=== PATIENT | female | born 1985 | race American Indian/Alaskan Native ===

== ENCOUNTER 2018-02-28 17:54 | Day surgery (SDC) | payer SELFPAY ==
[2018-02-28 17:57] VITALS: BP 138/88; PULSE 97; RESP 20; TEMP 36.8; O2SAT 100
--- NOTE | 2018-02-28 18:31 | DI.US.S_ITS ---
PROCEDURE: US RENAL COMPLETE INDICATIONS: FLANK PAIN; HISTORY STONES TECHNIQUE: Real-time scanning was performed of the kidneys and bladder, with image documentation. COMPARISON: [facility], US, US OB < 14 WEEKS + OB TRANSVAG, 10/09/2017, 12:02. [facility], US, US OB < 14 WEEKS + OB TRANSVAG, 04/15/2017, 15:27. [facility], US, US OB < 14 WEEKS + OB TRANSVAG, 04/02/2017, 9:25. [facility], US, US OB<14 WKS, 01/07/2017, 13:37. FINDINGS: Kidneys: Kidneys are normal in size. Right kidney measures 10.5 cm long; left kidney measures 13.4 cm long. Right renal cortical thickness is 1.6 cm; left renal cortical thickness is 1.8 cm. Renal cortical echotexture is normal. No hydronephrosis or nephrolithiasis. No suspicious solid mass lesions. Bladder: Could not be evaluated on this exam due to inadequate distention IMPRESSION: No hydronephrosis or nephrolithiasis identified. The bladder could not be evaluated on this exam. Dictated by: Sandeep Silva M.D. on 02/28/2018 at 19:37 Approved by: Sandeep Silva M.D. on 02/28/2018 at 19:39
--- NOTE | 2018-02-28 18:51 | ED_ITS ---
HPI - <EFRAIN Hagen - Last Filed: 02/28/18 23:12> General Chief complaint: Urogenital-Female Stated complaint: 6 WKS PREG, CRAMPING Time Seen by Provider: 02/28/18 18:20 Source: patient Mode of arrival: ambulatory Limitations: no limitations History of Present Illness HPI Narrative: Patient presents with chief complaint of left flank pain for a week. She states she has had left flank pain but denies any fevers nausea vomiting or diarrhea. She denies any dysuria urgency or frequency. She is concerned as she has a history of miscarriage. She denies any vaginal spotting or vaginal discharge. She states she has a history of kidney stones and is concerned about the possibility of a kidney stone. She denies any fevers, but complains of sweats and chills. Related Data Allergies Allergy/AdvReac Type Severity Reaction Status Date / Time hydrocodone Allergy Joint Pain Verified 02/28/18 18:03 Review of Systems <EFRAIN Hagen - Last Filed: 02/28/18 23:12> Review of Systems GENERAL: Denies chills, fatigue, malaise, fever, sweats. HEENT: Denies sinus pain, ear pain, sore throat, difficulty swallowing, dizziness. RESPIRATORY: Denies dyspnea, cough, wheezing, hemoptysis, sputum. CARDIOVASCULAR: Denies chest pain, palpitations, orthopnea, edema, GASTROINTESTINAL: See HPI : See HPI MUSCULOSKELETAL: denies weakness, joint pain, or bony pain SKIN: Denies rash, skin lesions, or other NEUROLOGIC: Denies weakness, headache, numbness, change in speech, confusion, seizures, incoordination. PSYCHIATRIC: No concerning psychosocial issues. 12 point review of systems is negative except for those stated above Exam <EFRAIN Hagen - Last Filed: 02/28/18 23:12> Narrative Exam Narrative: GENERAL: This is a well-nourished, well-developed patient, in no acute distress HEAD: Atraumatic. Normocephalic. No temporal or scalp tenderness. EYES: Pupils equal round and reactive. Extraocular motions intact. No scleral icterus. No injection or drainage. ENT: Nose without bleeding, purulent drainage or septal hematoma. Throat without erythema, tonsillar hypertrophy or exudate. Uvula midline. Airway patent. NECK: Trachea midline. No JVD or lymphadenopathy. Supple, nontender, no meningeal signs. CARDIOVASCULAR: Regular rate and rhythm without murmurs, gallops, or rubs. RESPIRATORY: Clear to auscultation. Breath sounds equal bilaterally. No wheezes , rales, or rhonchi. GASTROINTESTINAL: Abdomen soft, non-tender, nondistended. No hepato-splenomegaly , or palpable masses. No guarding. Active bowel sounds all 4 quadrants. No suprapubic pain to palpation. EXTREMITIES: No clubbing, cyanosis, or edema. No joint tenderness, effusion, or edema noted. BACK: Nontender without deformity or crepitance. Left-sided flank tenderness. NEURO: AOx3. SKIN: No rash or erythema. Initial Vital Signs Initial Vital Signs: Vital Signs Temperature 98.2 F 02/28/18 17:57 Pulse Rate 97 H 02/28/18 17:57 Respiratory Rate 20 02/28/18 17:57 Blood Pressure 138/88 02/28/18 17:57 Pulse Oximetry 100 02/28/18 17:57 <Stefan Hardy DO - Last Filed: 03/01/18 02:29> Initial Vital Signs Initial Vital Signs: Vital Signs Temperature 98.2 F 02/28/18 17:57 Pulse Rate 97 H 02/28/18 17:57 Respiratory Rate 20 02/28/18 17:57 Blood Pressure 138/88 02/28/18 17:57 Pulse Oximetry 100 02/28/18 17:57 Course <LISA Hagen-BC - Last Filed: 02/28/18 23:12> Course Narrative: I checked on the patient multiple times throughout her stay in the emergency department. Decision to Admit Date: 02/28/18 Decision to Admit time: 23:00 Orders Ordered: ED Orders 02/28/18 18:31 US renal complete Stat 02/28/18 18:45 Complete Blood Count AUTO DIFF Stat Comprehensive Metabolic Panel Stat HCG Quantitative Stat 02/28/18 19:41 US pelvic complete Stat 02/28/18 21:15 Complete Blood Count AUTO DIFF Stat Type and Screen Stat 02/28/18 23:14 Consult to Discharge Planning Routine Albuterol (Ventolin) 2.5 mg INH NOW PRN PRN Reason: Coughing, Wheezing, Dyspnea Benzocaine (Cepacol Lozenge) 1 each PO PRN PRN PRN Reason: Sore Throat Fentanyl (Sublimaze) 25 mcg IV Q5MIN PRN PRN Reason: Pain, Mild (1-3) Hydromorphone HCl (Dilaudid) 0.5 mg IV Q5MIN PRN PRN Reason: Pain, Moderate (4-6) Last Admin: 03/01/18 02:05 Dose: 0.5 mg Admin: 03/01/18 02:00 Dose: 0.5 mg Admin: 03/01/18 01:46 Dose: 0.5 mg Admin: 03/01/18 01:41 Dose: 0.5 mg Admin: 03/01/18 01:36 Dose: 0.5 mg Admin: 03/01/18 01:31 Dose: 0.5 mg Hydroxyzine HCl (Vistaril) 25 mg IM NOW PRN PRN Reason: Pain, Mild (1-3) Lactated Ringer's (Lactated Ringers) 1,000 mls @ 100 mls/hr IV CONT ONEIL Last Admin: 03/01/18 00:15 Dose: 100 mls/hr Lactated Ringer's (Lactated Ringers) 1,000 mls @ 42 mls/hr IV CONT ONEIL Lorazepam (Ativan) 0.25 mg IV NOW PRN PRN Reason: Anxiety Last Admin: 03/01/18 01:51 Dose: 0.25 mg Admin: 03/01/18 01:48 Dose: 0.25 mg Meperidine HCl (Demerol) 25 mg IV Q5MIN PRN PRN Reason: Pain or shivering Metoclopramide HCl (Reglan) 10 mg IV NOW PRN PRN Reason: Nausea And Vomiting Discontinued Medications Bupivacaine HCl/Epinephrine Bitart (Marcaine 0.25% W/ Epi) 12 ml INJ NOW ONE Stop: 03/01/18 01:22 Last Admin: 03/01/18 01:21 Dose: 12 ml Sodium Chloride (Normal Saline 0.9%) 1,000 mls @ 1,000 mls/hr IV BOLUS ONE Stop: 02/28/18 23:17 Last Infusion: 03/01/18 00:19 Dose: 0 mls/hr Admin: 02/28/18 22:29 Dose: 1,000 mls/hr Cefotetan Disodium/Dextrose (Cefotan) 2 gm in 50 mls @ 100 mls/hr IV NOW ONE Stop: 02/28/18 23:41 Last Infusion: 03/01/18 00:20 Dose: 0 mls/hr Admin: 02/28/18 23:29 Dose: 100 mls/hr Morphine Sulfate (Morphine) 2 mg IV NOW ONE Stop: 02/28/18 22:19 Last Admin: 02/28/18 22:29 Dose: 2 mg Morphine Sulfate (Morphine) 2 mg IV NOW ONE Stop: 02/28/18 23:28 Last Admin: 02/28/18 23:28 Dose: 2 mg Ondansetron HCl (Zofran) 4 mg IV NOW ONE Stop: 02/28/18 22:19 Last Admin: 02/28/18 22:29 Dose: 4 mg Consultations Consultation #1: Paged Dr. Davis regarding patient's condition and possible ectopic . Time: 22:05 Consultation #2: Dr. Davis in-house to evaluate patient. Time: 23:45 Vital Signs - 8 hr 02/28/18 20:00 03/01/18 00:02 03/01/18 01:20 Temperature 97.6 F 97.6 F Pulse Rate 70 74 90 Respiratory Rate 16 18 Blood Pressure 126/74 121/80 Blood Pressure [Left Arm] 122/69 Pulse Oximetry 98 99 100 03/01/18 01:25 03/01/18 01:30 03/01/18 01:45 Temperature Pulse Rate 87 86 82 Respiratory Rate 18 19 19 Blood Pressure 143/81 H 124/80 135/81 Blood Pressure [Left Arm] Pulse Oximetry 96 99 98 03/01/18 02:00 03/01/18 02:15 Temperature 97.0 F L Pulse Rate 84 60 Respiratory Rate 18 18 Blood Pressure 127/84 119/76 Blood Pressure [Left Arm] Pulse Oximetry 99 98 <Stefan Hardy, DO - Last Filed: 03/01/18 02:29> Orders Ordered: ED Orders 02/28/18 18:31 US renal complete Stat 02/28/18 18:45 Complete Blood Count AUTO DIFF Stat Comprehensive Metabolic Panel Stat HCG Quantitative Stat 02/28/18 19:41 US pelvic complete Stat 02/28/18 21:15 Complete Blood Count AUTO DIFF Stat Type and Screen Stat 02/28/18 23:14 Consult to Discharge Planning Routine Albuterol (Ventolin) 2.5 mg INH NOW PRN PRN Reason: Coughing, Wheezing, Dyspnea Benzocaine (Cepacol Lozenge) 1 each PO PRN PRN PRN Reason: Sore Throat Fentanyl (Sublimaze) 25 mcg IV Q5MIN PRN PRN Reason: Pain, Mild (1-3) Hydromorphone HCl (Dilaudid) 0.5 mg IV Q5MIN PRN PRN Reason: Pain, Moderate (4-6) Last Admin: 03/01/18 02:05 Dose: 0.5 mg Admin: 03/01/18 02:00 Dose: 0.5 mg Admin: 03/01/18 01:46 Dose: 0.5 mg Admin: 03/01/18 01:41 Dose: 0.5 mg Admin: 03/01/18 01:36 Dose: 0.5 mg Admin: 03/01/18 01:31 Dose: 0.5 mg Hydroxyzine HCl (Vistaril) 25 mg IM NOW PRN PRN Reason: Pain, Mild (1-3) Lactated Ringer's (Lactated Ringers) 1,000 mls @ 100 mls/hr IV CONT ONEIL Last Admin: 03/01/18 00:15 Dose: 100 mls/hr Lactated Ringer's (Lactated Ringers) 1,000 mls @ 42 mls/hr IV CONT ONEIL Lorazepam (Ativan) 0.25 mg IV NOW PRN PRN Reason: Anxiety Last Admin: 03/01/18 01:51 Dose: 0.25 mg Admin: 03/01/18 01:48 Dose: 0.25 mg Meperidine HCl (Demerol) 25 mg IV Q5MIN PRN PRN Reason: Pain or shivering Metoclopramide HCl (Reglan) 10 mg IV NOW PRN PRN Reason: Nausea And Vomiting Discontinued Medications Bupivacaine HCl/Epinephrine Bitart (Marcaine 0.25% W/ Epi) 12 ml INJ NOW ONE Stop: 03/01/18 01:22 Last Admin: 03/01/18 01:21 Dose: 12 ml Sodium Chloride (Normal Saline 0.9%) 1,000 mls @ 1,000 mls/hr IV BOLUS ONE Stop: 02/28/18 23:17 Last Infusion: 03/01/18 00:19 Dose: 0 mls/hr Admin: 02/28/18 22:29 Dose: 1,000 mls/hr Cefotetan Disodium/Dextrose (Cefotan) 2 gm in 50 mls @ 100 mls/hr IV NOW ONE Stop: 02/28/18 23:41 Last Infusion: 03/01/18 00:20 Dose: 0 mls/hr Admin: 02/28/18 23:29 Dose: 100 mls/hr Morphine Sulfate (Morphine) 2 mg IV NOW ONE Stop: 02/28/18 22:19 Last Admin: 02/28/18 22:29 Dose: 2 mg Morphine Sulfate (Morphine) 2 mg IV NOW ONE Stop: 02/28/18 23:28 Last Admin: 02/28/18 23:28 Dose: 2 mg Ondansetron HCl (Zofran) 4 mg IV NOW ONE Stop: 02/28/18 22:19 Last Admin: 02/28/18 22:29 Dose: 4 mg Vital Signs - 8 hr 02/28/18 20:00 03/01/18 00:02 03/01/18 01:20 Temperature 97.6 F 97.6 F Pulse Rate 70 74 90 Respiratory Rate 16 18 Blood Pressure 126/74 121/80 Blood Pressure [Left Arm] 122/69 Pulse Oximetry 98 99 100 03/01/18 01:25 03/01/18 01:30 03/01/18 01:45 Temperature Pulse Rate 87 86 82 Respiratory Rate 18 19 19 Blood Pressure 143/81 H 124/80 135/81 Blood Pressure [Left Arm] Pulse Oximetry 96 99 98 03/01/18 02:00 03/01/18 02:15 Temperature 97.0 F L Pulse Rate 84 60 Respiratory Rate 18 18 Blood Pressure 127/84 119/76 Blood Pressure [Left Arm] Pulse Oximetry 99 98 MDM - OB/Uterine Contractions <LISA Hagen-DANYEL - Last Filed: 02/28/18 23:12> Lab Data Result diagrams: 02/28/18 21:15 02/28/18 18:45 Lab Results 02/28/18 02/28/18 02/28/18 Range/Units 18:45 18:45 21:15 WBC 9.1 9.7 (4.5-11.0) X10^3/uL RBC 4.36 4.32 (4.0-5.2) X10^6/uL Hgb 14.0 13.9 (12.0-16.0) g/dL Hct 41.2 40.8 (36-46) % MCV 94.4 94.4 (80-100) fL MCH 32.1 32.1 (26-34) PG MCHC 34.0 34.0 (30-36) % RDW 13.3 13.2 (11.6-14.8) % Plt Count 232 242 (150-400) X10^3/uL Neut % (Auto) 58.7 59.0 (50-75) % Lymph % (Auto) 26.0 30.1 (25-40) % Turner % (Auto) 10.9 7.2 (3-14) % Eos % (Auto) 3.7 3.2 (2-4) % Baso % (Auto) 0.7 0.5 (0-2) % Neut # (Auto) 5300 5700 (1192-5928) /uL Sodium 140 (137-145) mmol/L Potassium 4.0 (3.4-5.1) mmol/L Chloride 103 (98-107) mmol/L Carbon Dioxide 27 (22-32) mmol/L BUN 11 (7-17) mg/dL Creatinine 0.50 L (0.52-1.04) mg/dL Estimated GFR > 60.0 (>60) mL/min BUN/Creatinine Ratio 22.0 (6-22) Glucose 80 (70-100) mg/dL Calcium 9.0 (8.4-10.2) mg/dL Total Bilirubin 0.2 (0.2-1.3) mg/dL AST 15 (14-36) IU/L ALT 21 (9-52) IU/L Alkaline Phosphatase 52 (38-126) U/L Total Protein 7.5 (6.3-8.2) g/dL Albumin 4.6 (3.5-5.0) g/dL Globulin 2.9 (1.7-4.1) g/dL Albumin/Globulin Ratio 1.6 (1.0-2.8) HCG, Quant 6207.9 mIU/mL Blood Type Antibody Screen 02/28/18 Range/Units 21:15 WBC (4.5-11.0) X10^3/uL RBC (4.0-5.2) X10^6/uL Hgb (12.0-16.0) g/dL Hct (36-46) % MCV (80-100) fL MCH (26-34) PG MCHC (30-36) % RDW (11.6-14.8) % Plt Count (150-400) X10^3/uL Neut % (Auto) (50-75) % Lymph % (Auto) (25-40) % Turner % (Auto) (3-14) % Eos % (Auto) (2-4) % Baso % (Auto) (0-2) % Neut # (Auto) (4750-4339) /uL Sodium (137-145) mmol/L Potassium (3.4-5.1) mmol/L Chloride (98-107) mmol/L Carbon Dioxide (22-32) mmol/L BUN (7-17) mg/dL Creatinine (0.52-1.04) mg/dL Estimated GFR (>60) mL/min BUN/Creatinine Ratio (6-22) Glucose (70-100) mg/dL Calcium (8.4-10.2) mg/dL Total Bilirubin (0.2-1.3) mg/dL AST (14-36) IU/L ALT (9-52) IU/L Alkaline Phosphatase (38-126) U/L Total Protein (6.3-8.2) g/dL Albumin (3.5-5.0) g/dL Globulin (1.7-4.1) g/dL Albumin/Globulin Ratio (1.0-2.8) HCG, Quant mIU/mL Blood Type O Positive Antibody Screen Negative Point of Care Testing Test Results Positive Urine Dip Bedside Urine Glucose Negative Bedside Urine Bilirubin - Negative Bedside Urine Ketone - Negative Urine Specific [place] 1.020 Bedside Urine Occult Blood - Negative Bedside Urine pH 7.5 Bedside Urine Protein - Negative Bedside Urine Urobilinogen - Negative Bedside Urine Nitrite - Negative Bedside Urine Leukocytes - Negative Esterase Imaging Data pelvis ultrasound : Radiologist's impression: [address] [address] Ultrasound Report Signed Patient: WANDER SABA [facility]#: [id number] : 1985Acct:[id number] Age/Sex: 32 / FDate of Service: 02/28/18 Loc: ED Accession Number: [id number] Procedure: US pelvic complete Ordering Provider: Kerrie Sewell-BC PROCEDURE: US PELVIC COMPLETE INDICATIONS: PAIN; POSITIVE TEST TECHNIQUE: Real-time scanning was performed of the pelvic organs, with image documentation. Additional endovaginal scanning was necessary due to incomplete visualization of the adnexal and endometrial structures by transabdominal scanning. COMPARISON: [facility], US, US RENAL COMPLETE, 02/28/2018, 18:33. [facility], US, US OB < 14 WEEKS + OB TRANSVAG, 10/09/2017, 12:02. [facility], US, US OB < 14 WEEKS + OB TRANSVAG, 04/15/2017, 15:27. [facility] Ultrasound, US, US OB < 14 WEEKS + OB TRANSVAG, 04/02/2017, 9:25. FINDINGS: Transabdominal scanning: Limited scanning through the kidneys shows no hydronephrosis. No pathologic free abdominal or pelvic fluid. Endovaginal scanning: Uterus: Uterus is normal in size at 8.7 x 7.8 x 4.9 cm. The endometrium measures 25 mm in combined thickness. No clear gestational sac can be identified on this exam. Ovaries: Right ovary measures 2.2 x 1.5 x 1.4 cm. Left ovary measures 3.0 x 2.4 x 3.1 cm there is a 2.4 x 1.9 x 1.9 cm more solid-appearing mass within the left ovary which demonstrates increased peripheral vascularity; this may represent a parenchymal component of the ovary but an ectopic cannot be excluded. IMPRESSION: No convincing intrauterine gestational sac identified. A component of the left ovary demonstrates peripheral vascularity which may represent a normal parenchymal component of the ovary, but an ectopic cannot be excluded at this time. Recommend followup pelvic ultrasound and possible CONVENTION SERVICES MANAGER consult for further evaluation, and correlation with laboratory values. Findings discussed with the referring provider Dr. Stefan Hardy in the emergency department at 10:52 PM on 02/28/2018 by telephone. Dictated by: Sandeep Silva M.D. on 02/28/2018 at 22:44 Approved by: Sandeep Silva M.D. on 02/28/2018 at 22:52 renal ultrasound : Radiologist's impression: [address] [address] Ultrasound Report Signed Patient: WANDER SABA [facility]#: [id number] : 1985Acct:[id number] Age/Sex: 32 / FDate of Service: 02/28/18 Loc: ED Accession Number: [id number] Procedure: US renal complete Ordering Provider: Kerrie Sewell PROCEDURE: US RENAL COMPLETE INDICATIONS: FLANK PAIN; HISTORY STONES TECHNIQUE: Real-time scanning was performed of the kidneys and bladder, with image documentation. COMPARISON: [facility], US, US OB < 14 WEEKS + OB TRANSVAG, 2017, 12:02. [facility], US, US OB < 14 WEEKS + OB TRANSVAG, 04/15/2017, 15:27. [facility] Ultrasound, US, US OB < 14 WEEKS + OB TRANSVAG, 2016, 9:25. [facility], US, US OB<14 WKS, 01/07/2017, 13:37. FINDINGS: Kidneys: Kidneys are normal in size. Right kidney measures 10.5 cm long; left kidney measures 13.4 cm long. Right renal cortical thickness is 1.6 cm; left renal cortical thickness is 1.8 cm. Renal cortical echotexture is normal. No hydronephrosis or nephrolithiasis. No suspicious solid mass lesions. Bladder: Could not be evaluated on this exam due to inadequate distention IMPRESSION: No hydronephrosis or nephrolithiasis identified. The bladder could not be evaluated on this exam. Dictated by: Sandeep Silva M.D. on 02/28/2018 at 19:37 Approved by: Sandeep Silva M.D. on 02/28/2018 at 19:39 MDM Narrative Medical decision making narrative: Patient presented with chief complaint of flank pain. Ultrasound was concerning for ectopic . die holder was in to evaluate patient agreed to take the patient to surgery. <Stefan Hardy DO - Last Filed: 03/01/18 02:29> Lab Data Lab Results 02/28/18 02/28/18 02/28/18 Range/Units 18:45 18:45 21:15 WBC 9.1 9.7 (4.5-11.0) X10^3/uL RBC 4.36 4.32 (4.0-5.2) X10^6/uL Hgb 14.0 13.9 (12.0-16.0) g/dL Hct 41.2 40.8 (36-46) % MCV 94.4 94.4 (80-100) fL MCH 32.1 32.1 (26-34) PG MCHC 34.0 34.0 (30-36) % RDW 13.3 13.2 (11.6-14.8) % Plt Count 232 242 (150-400) X10^3/uL Neut % (Auto) 58.7 59.0 (50-75) % Lymph % (Auto) 26.0 30.1 (25-40) % Turner % (Auto) 10.9 7.2 (3-14) % Eos % (Auto) 3.7 3.2 (2-4) % Baso % (Auto) 0.7 0.5 (0-2) % Neut # (Auto) 5300 5700 (2560-9487) /uL Sodium 140 (137-145) mmol/L Potassium 4.0 (3.4-5.1) mmol/L Chloride 103 (98-107) mmol/L Carbon Dioxide 27 (22-32) mmol/L BUN 11 (7-17) mg/dL Creatinine 0.50 L (0.52-1.04) mg/dL Estimated GFR > 60.0 (>60) mL/min BUN/Creatinine Ratio 22.0 (6-22) Glucose 80 (70-100) mg/dL Calcium 9.0 (8.4-10.2) mg/dL Total Bilirubin 0.2 (0.2-1.3) mg/dL AST 15 (14-36) IU/L ALT 21 (9-52) IU/L Alkaline Phosphatase 52 (38-126) U/L Total Protein 7.5 (6.3-8.2) g/dL Albumin 4.6 (3.5-5.0) g/dL Globulin 2.9 (1.7-4.1) g/dL Albumin/Globulin Ratio 1.6 (1.0-2.8) HCG, Quant 6207.9 mIU/mL Blood Type Antibody Screen 02/28/18 Range/Units 21:15 WBC (4.5-11.0) X10^3/uL RBC (4.0-5.2) X10^6/uL Hgb (12.0-16.0) g/dL Hct (36-46) % MCV (80-100) fL MCH (26-34) PG MCHC (30-36) % RDW (11.6-14.8) % Plt Count (150-400) X10^3/uL Neut % (Auto) (50-75) % Lymph % (Auto) (25-40) % Turner % (Auto) (3-14) % Eos % (Auto) (2-4) % Baso % (Auto) (0-2) % Neut # (Auto) (8155-8375) /uL Sodium (137-145) mmol/L Potassium (3.4-5.1) mmol/L Chloride (98-107) mmol/L Carbon Dioxide (22-32) mmol/L BUN (7-17) mg/dL Creatinine (0.52-1.04) mg/dL Estimated GFR (>60) mL/min BUN/Creatinine Ratio (6-22) Glucose (70-100) mg/dL Calcium (8.4-10.2) mg/dL Total Bilirubin (0.2-1.3) mg/dL AST (14-36) IU/L ALT (9-52) IU/L Alkaline Phosphatase (38-126) U/L Total Protein (6.3-8.2) g/dL Albumin (3.5-5.0) g/dL Globulin (1.7-4.1) g/dL Albumin/Globulin Ratio (1.0-2.8) HCG, Quant mIU/mL Blood Type O Positive Antibody Screen Negative Point of Care Testing Test Results Positive Urine Dip Bedside Urine Glucose Negative Bedside Urine Bilirubin - Negative Bedside Urine Ketone - Negative Urine Specific [place] 1.020 Bedside Urine Occult Blood - Negative Bedside Urine pH 7.5 Bedside Urine Protein - Negative Bedside Urine Urobilinogen - Negative Bedside Urine Nitrite - Negative Bedside Urine Leukocytes - Negative Esterase Discharge Plan Departure Patient Disposition: Admitted As Inpatient Clinical Impression: Ectopic Discharge Date/Time: 03/01/18 00:00 Interventions: ED Discharge Assessment Last Done: 03/01/18 00:00 Admit Date/Time: 02/28/18 23:02 Admit Provider: Mick Davis <Stefan [place], DO - Last Filed: 03/01/18 02:29> Cosign ED Attending Robeature Attestation: I was immediately available in the department for consultation. Documentation has been reviewed. I agree with assessment and plan.
[2018-02-28 18:53] LABS: Add Manual Diff / Slide Review NO; Basophils Percent Auto 0.7 % (0-2); Eosinophils Percent Auto 3.7 % (2-4); Hematocrit 41.2 % (36-46); Mean Corpuscular Hemoglobin 32.1 PG (26-34); Mean Corpuscular Volume 94.4 fL (80-100); Monocytes Percent Auto 10.9 % (3-14); Neutrophils Absolute Auto 5300 /uL (3000-5900); Neutrophils Percent Auto 58.7 % (50-75); Platelet Count 232 X10^3/uL (150-400); Red Blood Cell Count 4.36 X10^6/uL (4.0-5.2); Red Cell Distribution Width 13.3 % (11.6-14.8); White Blood Cell Count 9.1 X10^3/uL (4.5-11.0)
[2018-02-28 19:06] LABS: Alanine Aminotransferase 21 IU/L (9-52); Albumin 4.6 g/dL (3.5-5.0); Albumin Globulin Ratio 1.6 (1.0-2.8); Alkaline Phosphatase 52 U/L (38-126); Aspartate Aminotransferase 15 IU/L (14-36); Bilirubin Total 0.2 mg/dL (0.2-1.3); Blood Urea Nitrogen 11 mg/dL (7-17); Carbon Dioxide 27 mmol/L (22-32); Chloride 103 mmol/L (98-107); Estimated Glomerular Filt Rate > 60.0 mL/min (>60); Globulin 2.9 g/dL (1.7-4.1); Glucose 80 mg/dL (70-100); HEMOLYSIS < 15 (0-50); Sodium 140 mmol/L (137-145); Total Protein 7.5 g/dL (6.3-8.2)
[2018-02-28 19:23] LABS: HCG Quantitative /Beta subunit 6207.9 mIU/mL
--- NOTE | 2018-02-28 19:41 | DI.US.S_ITS ---
PROCEDURE: US PELVIC COMPLETE INDICATIONS: PAIN; POSITIVE TEST TECHNIQUE: Real-time scanning was performed of the pelvic organs, with image documentation. Additional endovaginal scanning was necessary due to incomplete visualization of the adnexal and endometrial structures by transabdominal scanning. COMPARISON: [facility], US, US RENAL COMPLETE, 02/28/2018, 18:33. [facility], US, US OB < 14 WEEKS + OB TRANSVAG, 10/09/2017, 12:02. [facility], US, US OB < 14 WEEKS + OB TRANSVAG, 04/15/2017, 15:27. [facility] Ultrasound, US, US OB < 14 WEEKS + OB TRANSVAG, 04/02/2017, 9:25. FINDINGS: Transabdominal scanning: Limited scanning through the kidneys shows no hydronephrosis. No pathologic free abdominal or pelvic fluid. Endovaginal scanning: Uterus: Uterus is normal in size at 8.7 x 7.8 x 4.9 cm. The endometrium measures 25 mm in combined thickness. No clear gestational sac can be identified on this exam. Ovaries: Right ovary measures 2.2 x 1.5 x 1.4 cm. Left ovary measures 3.0 x 2.4 x 3.1 cm there is a 2.4 x 1.9 x 1.9 cm more solid-appearing mass within the left ovary which demonstrates increased peripheral vascularity; this may represent a parenchymal component of the ovary but an ectopic cannot be excluded. IMPRESSION: No convincing intrauterine gestational sac identified. A component of the left ovary demonstrates peripheral vascularity which may represent a normal parenchymal component of the ovary, but an ectopic cannot be excluded at this time. Recommend followup pelvic ultrasound and possible LEARNING COORDINATOR consult for further evaluation, and correlation with laboratory values. Findings discussed with the referring provider Dr. Stefan Hardy in the emergency department at 10:52 PM on 02/28/2018 by telephone. Dictated by: Sandeep Silva M.D. on 02/28/2018 at 22:44 Approved by: Sandeep Silva M.D. on 02/28/2018 at 22:52
[2018-02-28 20:00] VITALS: BP 122/69; PULSE 70; O2SAT 98
[2018-02-28] MEDS: SODIUM CHLORIDE 0.9% 1,000 ML 1000 ML IV (22:29)
[2018-02-28] MEDS: ONDANSETRON 4 MG/2 ML INJ IV (22:29)
[2018-02-28] MEDS: MORPHINE 2 MG/ML INJ IV ×2 (22:29→23:28)
--- NOTE | 2018-02-28 23:15 | PM.GYNHP.1 ---
History of Present Illness Reason for admission: pelvic pain, early complication and ectopic Narrative: WANDER SABA is a 32 year old female 12 para 0 with multiple is carries his throughout her lifetime. It would appear that her sister has the methyl tetra hydro folate gene and has had multiple miscarriages well. Patient's grandmother and mother also had multiple miscarriages. Patient has never had a D&C. 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 Her serum calcium sure evidently normal. Patient's last menstrual period was the 14 of January. She would be now 45 days . Patient presented with onset of left flank and lower abdominal discomfort and pain which interpreted as being perhaps a renal stone. Patient presented to the emergency room here at [facility]. Workup showed a quantitative HCG of 6000 an ultrasound which I have reviewed showing a mass on the left-hand side which is vascular compatible either with an ectopic or a corpus luteum cyst. There is no free fluid. Evaluation of the uterus shows a thin endometrial stripe and no intrauterine . [facility] Social History Smoking Status: Current every day smoker Meds Allergies Allergy/AdvReac Type Severity Reaction Status Date / Time hydrocodone Allergy Joint Pain Verified 02/28/18 18:03 Review of Systems Review of Systems All systems reviewed & are unremarkable except as noted in HPI and below Eyes Eyes: Reports system reviewed; no additional complaints, except as documented ENT Ears, Nose, Mouth, and Throat: Yes system reviewed; no additional complaints, except as documented Cardiovascular Cardiovascular: Reports system reviewed; no additional complaints, except as documented Respiratory Respiratory: Reports system reviewed and no additional complaints, except as documented Gastrointestinal Gastrointestinal: Reports system reviewed and no additional complaints, except as documented Genitourinary Genitourinary: Reports system reviewed and no additional complaints, except as documented Musculoskeletal Musculoskeletal: Reports system reviewed; no additional complaints, except as documented Integumentary/Breasts Skin/Breast: Reports system reviewed and no additional complaints, except as documented Neurologic Neurologic: Reports system reviewed and no additional complaints, except as documented Psychiatric Psychiatric: Reports system reviewed and no additional complaints, except as documented Endocrine Endocrine: Reports system reviewed and no additional complaints, except as documented Hematologic/Lymphatic Hematologic/Lymphatic: Reports system reviewed and no additional complaints, except as documented Allergic/Immunologic Allergic/Immunologic: Reports system reviewed and no additional complaints, except as documented Exam Vital Signs (past 8 hours): - 02/28/18 17:57 02/28/18 20:00 Temperature 98.2 F Pulse Rate 97 H 70 Respiratory Rate 20 Blood Pressure 138/88 Blood Pressure [Left Arm] 122/69 Pulse Oximetry 100 98 Oxygen Delivery Method Room Air [facility] Head: normal to inspection Ears: hearing grossly normal bilaterally Nose: external nose normal Face and sinus: normal facial exam Eyes General: appearance normal, both eyes and all related structures Neck Neck: normal visual inspection Chest Breast inspection: normal inspection of the breasts Resp Auscultation: clear to auscultation bilaterally Cardio Rhythm: regular rhythm Heart Sounds: S1 normal and S2 normal GI Palpation: soft and no hepatosplenomegaly Percussion: normal to percussion Auscultation: normal bowel sounds External Female Exam: external appearance normal Speculum Exam - Vagina: normal appearance of the vagina Bimanual Exam- Vagina & Uterus: normal bimanual exam, uterine size normal, uterine consistency normal, uterine mobility normal and uterine shape normal Bimanual Exam- Adnexa, other: normal adnexae and adnexal tenderness (Left-hand side) on the left Back/Spine/Pelvis Thoracic/Lumbar Spine: thoracic and lumbar spine normal to inspection Skin Hair: normal Neuro General: alert, tone normal, moves all extremities and normal light touch, pain and propioception Extrem General: normal to inspection Right upper extremity: normal to inspection Left upper extremity: normal to inspection Right lower extremity: normal to inspection Left lower extremity: normal to inspection Psych Appearance: grossly normal Objective Labs Result Diagrams: 02/28/18 18:45 02/28/18 18:45 Labs: Laboratory Results - last 24 hr 02/28/18 02/28/18 18:45 18:45 WBC 9.1 RBC 4.36 Hgb 14.0 Hct 41.2 MCV 94.4 MCH 32.1 MCHC 34.0 RDW 13.3 Plt Count 232 Neut % (Auto) 58.7 Lymph % (Auto) 26.0 [place] % (Auto) 10.9 Eos % (Auto) 3.7 Baso % (Auto) 0.7 Neut # (Auto) 5300 Sodium 140 Potassium 4.0 Chloride 103 Carbon Dioxide 27 BUN 11 Creatinine 0.50 L Estimated GFR > 60.0 BUN/Creatinine Ratio 22.0 Glucose 80 Calcium 9.0 Total Bilirubin 0.2 AST 15 ALT 21 Alkaline Phosphatase 52 Total Protein 7.5 Albumin 4.6 Globulin 2.9 Albumin/Globulin Ratio 1.6 HCG, Quant 6207.9 Assessment & Plan (1) Ectopic , tubal: Current visit: Yes Status: Acute Plan: Assessment/Plan Narrative: Probable left ectopic We had a lengthy discussion with the patient and her concerning the use of methotrexate versus laparoscopic removal of the ectopic. The patient and her preferred surgery. Plan therefore is for diagnostic laparoscopy and probable left salpingectomy with removal of ectopic
[2018-02-28 23:22] LABS: Add Manual Diff / Slide Review NO; Basophils Percent Auto 0.5 % (0-2); Eosinophils Percent Auto 3.2 % (2-4); Hematocrit 40.8 % (36-46); Hemoglobin 13.9 g/dL (12.0-16.0); Lymphocytes Percent Auto 30.1 % (25-40); Mean Corpuscular Hemoglobin 32.1 PG (26-34); Mean Corpuscular Volume 94.4 fL (80-100); Monocytes Percent Auto 7.2 % (3-14); Neutrophils Absolute Auto 5700 /uL (3000-5900); Platelet Count 242 X10^3/uL (150-400); Red Blood Cell Count 4.32 X10^6/uL (4.0-5.2); Red Cell Distribution Width 13.2 % (11.6-14.8); White Blood Cell Count 9.7 X10^3/uL (4.5-11.0)
[2018-02-28] MEDS: CEFOTETAN 2 GM/50 ML PIGGYBACK IV (23:29)
[2018-03-01] VITALS (15 sets, daily range): BP systolic 110–143; BP diastolic 42–84; PULSE 60–94; RESP 16–19; TEMP 36.1–36.8; O2SAT 92–100; BMI 29.2
--- NOTE | 2018-03-01 | PATH_ITS ---
[facility] Accession Number: [id number] . 01 Material submitted: . LEFT OVARIAN MASS . 01 Clinical history: . MASS . 02 Diagnosis: Left Ovarian Mass: Large hemorrhagic corpus luteum, negative for atypia. Negative for evidence of ectopic . MRV/03/04/2018 . 02 Electronically signed: . Juan Terrazas MD, Pathologist NPI- [id number] . 01 Gross description: . Received in formalin, labeled left ovarian mass is an ovary (2.3 x 1.3 x 1.3 cm) with shelley-yellow flat serosa and bright yellow solid firm parenchyma with corpus albicans identified. Dental Therapist serial sections submitted in cassette A1. ([id number]) /MRV . 02 Pathologist provided ICD-10: N83.12 . 02 CPT . 945417 Performed at: 01 [facility] [address] [facility], [place], [place] [id number] MD Niranjan Li MD Phone: [phone] Performed at: 02 [facility] [address] [place], [place] [id number] MD Faisal Hong MD Phone: [phone]
[2018-03-01] MEDS: LACTATED RINGERS 1,000 ML 100 ML IV (00:15)
--- NOTE | 2018-03-01 00:43 | SUR.OPER ---
Lithotomy on padded OR bed, head on pillow, arms secured on padded arm boards at <90 degrees abduction. Legs secured in padded yellow fins stirrups.
[2018-03-01] MEDS: BUPIVACAINE 0.25% W/ EPI VIAL 12 ML INJ (01:21)
[2018-03-01] MEDS: HYDROMORPHONE 2 MG INJ 0.5 MG IV ×6 (01:31→02:05)
--- NOTE | 2018-03-01 01:31 | P.OP_ITS ---
Operative Date/Time/Diagnoses Date of procedure: 03/01/18 Time of procedure: 01:24 Post-op diagnosis: other (Probable corpus luteum cyst on left ovary S/normal tubes/no evidence of intrauterine ) Procedure: Procedures Operation Date: 02/28/18 23:45 Actual Procedures Side Surgeon p diagnostic laparoscopy with left salpingectomy, removal ectopic Mick Davis MD Indications: Left-sided pain with vascular mass Surgeon: Mick Davis Anesthesia Type: General (Endotracheal intubation) Operative Notes Closure Type: primary Specimen(s): ovarian biopsy Estimated blood loss (mL): 25 Blood products transfused: none Procedure in detail: The patient was placed supine upon the operating table and anesthetized. She was then placed in the dorsal lithotomy position and draped and prepared in the usual fashion. Speculum was set in place in the anterior lip of the cervix grasped with a toothed tenaculum. Cervix was dilated to Hegar 8. And a Zumi intubation cannula was then placed without difficulties. Speculum and tenaculum were then removed. Gloves were changed and attention turned to the abdomen. Approximately 8 cc of 0.25% Marcaine and 1 to 532132 epinephrine were injected at the umbilicus. Sharp knife incision was made. The Veress needle was placed. Approximately 4.6 L of carbon dioxide gas were insufflated to a final resting pressure of 15 cm of water. The lap scope was placed therapy through and the patient had an obvious vascular mass on the left- hand side. 2 5 mm ports were then introduced on left and right sides under direct laparoscopic vision. After injection with 0.25% Marcaine. The left tube was picked up and looked at its entirety and there is no evidence of an ectopic . There was a 2 cm vascular mass on the ovary itself which appeared to be a corpus luteum but an ectopic of ovarian nature could not be excluded. The right tube and ovary were then looked at and the right ovary and tube were entirely normal. The left tube was looked at again its entirety and there were no deformities of any kind. Evidence of an ectopic in the tube itself. Since the ultrasound had shown no intrauterine with a quantitative HCG of 6000 the presumptive diagnosis remained either miscarriage or ectopic . It was felt that removing ovarian mass even though it might be corpus luteum was okay S this was not a viable of any sort. The ovary was grasped and the PlasmaKinetic was then used to excise the corpus luteum without difficulty. The area was irrigated and no bleeding points were seen. All blood was removed from the pelvic cavity after irrigation. This having been ascertained all carbon dioxide gas was allowed to exit the abdomen and laparoscoped and trocars were then removed. The umbilical incision was closed with a deep 0 Vicryl suture. The incisions were then closed with a running horizontal mattress three 0 Vicryl suture. There were further approximated with Steri-Strips. This whom insufficient cannula was removed and the patient was taken to the recovery room in satisfactory condition. Complications: none Post-operative Condition: stable Disposition: PACU Plan for aftercare: Patient will be transferred to the floor for observation
[2018-03-01] MEDS: LORazepam 2 MG/ML SYRINGE 0.25 MG IV ×2 (01:48→01:51)
[2018-03-01] MEDS: HYDROMORPHONE 1 MG INJ IV (03:02)
[2018-03-01] MEDS: DEXTROSE 5%-LACTATED RINGERS 1,000 ML 100 ML IV (03:02)
[2018-03-01] MEDS: OXYCODONE/ACETAMINOPHEN 5/325 TABLET 2 TAB PO (03:46)
--- NOTE | 2018-03-01 04:10 | PC.NURSE ---
Admitted to room 218, pt. awake alert. Oriented to her room & instructed to call for assistance if she needed to use the BSC. C/O pain to abdomen rated pain level @ 7-8/10, medicated with 1 mg. of Dilaudid IVP & 2 tabs. of Percocet. Denies any nausea, will cont. POc & monitor.
--- NOTE | 2018-03-01 04:28 | PC.NURSE ---
Dr. Davis notified that pt. is C/O pain, after medicated with 1 mg. of Dilaudid IVP & 2 tabs. of Percocet. Awaiting call back, call via answering services.
[2018-03-01] MEDS: HYDROMORPHONE 2 MG INJ IV ×4 (05:09→16:47)
--- NOTE | 2018-03-01 05:15 | PC.NURSE ---
Dr. Davis called back, ordered to changed Dilaudid to 2 mg. every 2 hrs. & also ordered 1 mg. of Ativan Q 8 hrs. prn. 2 mg. of Dilaudid admin. Will monitor.
[2018-03-01] MEDS: ONDANSETRON 4 MG/2 ML INJ IV ×2 (07:23→14:04)
[2018-03-01] MEDS: METOCLOPRAMIDE 10 MG/2 ML INJ IV (08:59)
[2018-03-01] MEDS: HYDROMORPHONE 2 MG TABLET PO ×3 (09:34→19:05)
[2018-03-01] MEDS: LORazepam 2 MG/ML SYRINGE 1 MG IV (09:43)
--- NOTE | 2018-03-01 09:47 | PC.NURSE ---
Addendum entered by Sendy Christianson R.N. 03/01/18 14:35: 1430-IVF changed to d5 LR @ 100, d/c cancelled by Dr Davis . Original Note: Addendum entered by Sendy Christianson R.N. 03/01/18 13:50: Add- Call retruned from Dr Betancourt, monitor Pt, she has had all 3 antiemetic medications. D/c may need to be changed to tomorrow. Original Note: Addendum entered by Sendy Christianson R.N. 03/01/18 13:15: 1215-Pt has been pain controlled with PO dilaudid and would like to attempt shower. HL IV . Add-1315-Pt came out of bathroom, with emesis and nausea. Zofran given. Too early for Reglan or ativan. Call into Dr Davis office. Original Note: Am shift Dr Davis has been into see Pt and written d/c orders, Pain control will be changed to PO Dilaudid for better coverage, and IV ativan PRN in hospital. Medicated for nausea. Will reassess and look at early afternoon for d/c plan
--- NOTE | 2018-03-01 15:47 | CM.IDA ---
Dr Davis completed DC order this morning; spoke w/ Dr Davis who explained pt has no needs for this [employer] and has safe DCP home today w/close outpt f/u. P: Home w/family and outpt f/u. No addtl. needs. JW
--- NOTE | 2018-03-01 20:00 | P.PN_ITS ---
Subjective Date Patient Seen: 03/01/18 Time Patient Seen: 17:02 Interval history: Patient had surgery for an ectopic by Dr. Mick Davis. She had been discharged home however prior to discharge she had emesis. She thought perhaps it was a combination of nothing in her stomach and getting up to take a shower but she wanted to make sure she could tolerate her pain pills before going home. Patient did eat dinner and was able to keep her pain pills down so was discharged home Exam Vital Signs (past 8 hours): - 03/01/18 16:12 Temperature 97.9 F Pulse Rate 63 Respiratory Rate 18 Blood Pressure 117/66 Oxygen Delivery Method Room Air Objective Labs Result Diagrams: 02/28/18 21:15 02/28/18 18:45 Labs: Laboratory Results - last 24 hr 02/28/18 02/28/18 21:15 21:15 WBC 9.7 RBC 4.32 Hgb 13.9 Hct 40.8 MCV 94.4 MCH 32.1 MCHC 34.0 RDW 13.2 Plt Count 242 Neut % (Auto) 59.0 Lymph % (Auto) 30.1 [place] % (Auto) 7.2 Eos % (Auto) 3.2 Baso % (Auto) 0.5 Neut # (Auto) 5700 Blood Type O Positive Antibody Screen Negative Assessment & Plan (1) Postoperative nausea and vomiting: Current visit: Yes Status: Acute (2) Ectopic , tubal: Qualifiers: Intrauterine status: without intrauterine Laterality: unspecified laterality Qualified Code(s): O00.109 - Unspecified tubal without intrauterine Current visit: Yes Status: Acute Plan: Assessment/Plan Narrative: Patient is okay to be discharged as previously noted by Dr. Davis as she is now able to keep oral pain pills down. Quality VTE Deep Vein Thrombosis/Pulmonary Embolism Present on Admission: No
--- NOTE | 2018-03-01 20:22 | PC.NURSE ---
DISCHARGE A&Ox3, independent with ADLs. lap site x3 with some old, dry bloody drainage noted to steri strips but otherwise CDI. pt reports no nausea after last zofran given but initially hesitant to try PO dilaudid. able to tolerate regular diet for dinner without any issues and willing to try PO dilaudid afterward. pt without any nausea or vomiting after PO meds and voiced eagerness to d/c home tonight. d/c instructions reviewed with pt and pt's significant other. IV removed. prescriptions given. pt escorted off unit at approximately 2020 via wheelchair, accompanied by family and RN.
== END 2018-03-01 20:22 | disposition home or self-care (01) ==
LOC: ED 18:43 → AC 23:11 → ED 03-02 07:04 → OR 03-02 07:04 → AC 03-02 07:05
PROVIDERS: Emergency Provider Nurse Practitioner Family
PROC: (CPT 49320; principal; 2018-02-28 23:45)
DX: O00.102 Left tubal pregnancy without intrauterine pregnancy (principal); Z3A.01 Less than 8 weeks gestation of pregnancy; F17.210 Nicotine dependence, cigarettes, uncomplicated
CPT/HCPCS: 59151; 36415; 36591; 76770; 76830; 76856; 80053; 81003; 81025; 84702; 85025; 86850; 86900; 86901; 96374; 96375; 99282; 99285; J0330; J1100; J1170; J2060; J2250; J2270; J2405; J2704; J2765; J3010; J7121

== ENCOUNTER → 2018-03-08 09:05 | Outpatient (CLI) | payer SELFPAY ==
[2018-03-01 03:16] VITALS: BMI 29.2
[2018-03-08 10:05] LABS: HCG Quantitative /Beta subunit 1628.4 mIU/mL
== END ==
DX: O00.109 Unspecified tubal pregnancy without intrauterine pregnancy (principal)
CPT/HCPCS: 36415; 84702